=== PATIENT | female | born 1990 | race Caucasian/White ===

== ENCOUNTER 2020-07-25 03:05 | Emergency (ER) | payer OTHER, SELFPAY ==
[2020-07-25 03:06] VITALS: BP 113/96; PULSE 99; RESP 17; TEMP 36.4; O2SAT 97; BMI 42.1
[2020-07-25] MEDS: Ibuprofen 400 MG Tablet 800 MG PO (03:24)
--- NOTE | 2020-07-25 03:26 | ED.DCSUM_ITS ---
History of Present Illness Chief Complaint: Back Informant: Patient Narrative: Patient stated she had a workers comp related injury. She was lifting equipment at work and did not have specific injury while working but after doing her work for some time she started feeling tightness and pain in her left lower back. Is a aching throbbing sensation occasionally sharp with bending and twisting. She did not feel a pop. No previous back injury. Current severity is moderate. She does lift heavy things at work. No radicular symptoms. Past Medical History - Allergies and Home Meds Allergies/Adverse Reactions: Allergies amoxicillin Allergy (Verified 07/25/20 03:09) Lali Primary Care Physician: Jorge Castellano,Out of [Primary Care Provider] - Prior records reviewed: Yes Past Medical History: None Surgical History: noncontributory Smoking Status: Current every day smoker Alcohol: None Drugs: None Review of Systems General: Denies: Chills, Fever, Sweats Eyes: Denies: Visual changes - bilaterally, Diplopia ENT: Denies: Rhinorrhea, Sore throat Cardiovascular: Denies: Chest pain, Palpitations Respiratory: Denies: Dyspnea, Cough, Dyspnea on exertion Gastrointestinal: Denies: Abdominal pain, Nausea, Vomiting, Diarrhea, Melena, Hematochezia Genitourinary: Denies: Dysuria, Hematuria, Frequency Musculoskeletal: Reports: Back pain. Denies: Extremity Pain Skin: Denies: Rash, Wounds Neurological: Denies: Headache, Weakness, Numbness Physical Exam Vital Signs/Narrative: Vital Signs Temp Pulse Resp BP Pulse Ox 07/25/20 03:06 97.6 F L 99 17 113/96 H 97 General: Well nourished, Well developed, No Acute Distress Head: Normocephalic, Atraumatic Eyes: Perrl, EOMI ENT: Moist mucous membranes, No rhinorrhea Neck: Supple, Nontender Cardiovascular: Regular rate, Regular rhythm, No murmurs Respiratory: No distress, CTA bilaterally, Chest nontender Abdomen: Soft, Nontender, Nondistended, Normal bowel sounds Back: Normal Inspection, - - Nurse in the left lower lumbar paraspinal musculature. Mild decreased range of motion secondary to pain. No swelling or deformity.. Negative for: CVA tenderness, Spinal tenderness Extremities: Nontender, No edema Skin: Normal color, No rash Neurological: Alert, Oriented x3, Cranial nerves II-XII grossly intact, Normal Strength, Normal Sensation Psychological: Normal affect, Normal Mood Diagnostic/Tx/Re-eval - Medical Decision Making I feel the patient has a low back strain. I discussed x-rays with the patient at this time we will hold off as there is no specific injury. Her back ti ghtened up at work which I suspect is a muscle strain. She was given ibuprofen ice pack. She will rest and ice and given work restrictions. I am hoping this should heal up in 2 weeks or less ED Disposition - Plan for ED Patient: Disposition: Home or Assisted Living Diagnosis: Low back strain Instructions: ED Back Sprain/Strain Referrals: [facility] [GROUP OF PHYSICIANS] -
[2020-07-25 04:09] VITALS: BP 114/78; PULSE 89; RESP 18; O2SAT 99
== END 2020-07-25 04:10 | disposition home or self-care (01) ==
LOC: ED 03:42
PROVIDERS: Emergency Provider Emergency Medicine
DX: S39.012A Strain of muscle, fascia and tendon of lower back, initial encounter (principal); X50.1XXA Overexertion from prolonged static or awkward postures, initial encounter; Y93.9 Activity, unspecified; Y92.9 Unspecified place or not applicable; Y99.0 Civilian activity done for income or pay
CPT/HCPCS: 99283